=== PATIENT | female | born 1985 | race African-American/Black ===

== ENCOUNTER 2016-10-26 16:53 | Emergency (ER) | payer OTHER ==
[2016-10-26 17:00] VITALS: BP 110/71; PULSE 110; TEMP 98.6; BMI 31.3
--- NOTE | 2016-10-26 18:10 | PDOC ---
Attending Attestation - Resident Resident Name: Misty Orellana - ED Attending Attestation I have performed the following: I have examined & evaluated the patient, The case was reviewed & discussed with the resident, I agree w/resident's findings & plan, Exceptions are as noted - HPI HPI: 10/26/16 18:09 Asthma - Physicial Exam PE: 10/26/16 18:09 VSS NO RESPIRATORY DISTRESS - Medical Decision Making 10/26/16 18:[address] ORELLANA's ASSESSMENT AND PLAN
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
[2016-10-26 18:59] LABS: BASOPHIL 0.9 % (0-2.0); EOSINOPHIL 2.6 % (0-4.5); MCH 27.3 pg (25.7-33.7); MCHC 34.1 g/dl (32.0-36.0); MEAN CELL VOLUME 79.9 fl (80-96); MEAN PLT VOLUME 8.7 fl (7.5-11.1); NEUTROPHILS 57.3 % (42.8-82.8); PLATELET COUNT 441 K/MM3 (134-434); RDW 17.2 % (11.6-15.6); WHITE BLOOD COUNT 12.6 K/mm3 (4.0-10.0)
[2016-10-26 19:02] LABS: URINE APPEARANCE CLOUDY; URINE BILIRUBIN NEGATIVE (NEGATIVE); URINE BLOOD NEGATIVE (NEGATIVE); URINE COLOR DKYELLOW; URINE GLUCOSE (UA) NEGATIVE (NEGATIVE); URINE KETONE TRACE (NEGATIVE); URINE NITRITE NEGATIVE (NEGATIVE)
[2016-10-26 19:05] LABS: URINE LEUK ESTERASE 2+ (NEGATIVE); URINE PROTEIN 1+ (NEGATIVE)
[2016-10-26 19:08] LABS: URINE BACTERIA FEW /hpf (NONE SEEN); URINE HYALINE CAST 10 /lpf; URINE MUCUS MANY; URINE RBC 22 /hpf (0-3); URINE WBC 54 /hpf (3-5)
[2016-10-26] MEDS ORDERED: CEPHALEXIN MONOHYDRATE 500 MG CAPSULE (UD) PO ONE (20:06)
[2016-10-26] MEDS ORDERED: CEPHALEXIN MONOHYDRATE 250 MG CAPSULE (FP) ONE (20:09)
--- NOTE | 2016-10-26 20:11 | PDOC ---
*Physical Exam - Vital Signs Last Vital Signs Temp Pulse Resp BP Pulse Ox 98.6 F 110 H 18 110/71 98 10/26/16 16:58 10/26/16 16:58 10/26/16 16:58 10/26/16 16:58 10/26/16 16:58 - Physical Exam Comments: 10/26/16 20:08 GENERAL: Awake, alert, and fully oriented, in no acute distress HEAD: No signs of trauma, normocephalic, atraumatic EYES: PERRLA, EOMI, sclera anicteric, conjunctiva clear ENT: Auricles normal inspection, hearing grossly normal, oropharynx clear without exudates. Moist mucosa LUNGS: No distress, speaks full sentences, clear to auscultation bilaterally HEART: Regular rate and rhythm, normal S1 and S2, no murmurs, rubs or gallops, peripheral pulses normal and equal bilaterally. ABDOMEN: Suprapubic tenderness. No guarding, no rebound. No masses NEUROLOGICAL: Cranial nerves II through XII grossly intact. Normal speech, no focal sensorimotor deficits SKIN: Warm, Dry, normal turgor, no rashes or lesions noted. ED Treatment Course - LABORATORY CBC & Chemistry Diagram: 10/26/16 18:30 10/26/16 19:31 - ADDITIONAL ORDERS Additional order review: Laboratory Results 10/26/16 10/26/16 10/26/16 18:30 18:30 18:30 Sodium Cancelled Potassium Cancelled Chloride Cancelled Carbon Dioxide Cancelled Anion Gap Cancelled BUN Cancelled Creatinine Cancelled Creat Clearance w eGFR Cancelled Random Glucose Cancelled Calcium Cancelled Total Bilirubin Cancelled AST Cancelled ALT Cancelled Alkaline Phosphatase Cancelled Total Protein Cancelled Albumin Cancelled Serum , Qual Cancelled Urine Color Dkyellow Urine Appearance Cloudy Urine pH 5.0 Urine Protein 1+ H Urine Glucose (UA) Negative Urine Ketones Trace H Urine Blood Negative Urine Nitrite Negative Urine Bilirubin Negative Urine Urobilinogen 2.0 H Ur Leukocyte Esterase 2+ H Urine RBC 22 Urine WBC 54 Ur Epithelial Cells Moderate Urine Bacteria Few Hyaline Casts 10 Urine Mucus Many Urine HCG, Qual Negative 10/26/16 18:30 RBC 4.56 MCV 79.9 L MCHC 34.1 RDW 17.2 H MPV 8.7 D Neutrophils % 57.3 D Lymphocytes % 30.8 D Monocytes % 8.4 D Eosinophils % 2.6 D Basophils % 0.9 Medical Decision Making - Medical Decision Making 10/27/16 06:23 Patient is 31F with suprapubic abdominal pain. Vital signs stable and normal. UA shows UTI, no CVA tenderness, normal kidney function in labs. Given 3 days of keflex, first dose given here. Discharged to PCP followup. *DC/Admit/Observation/Transfer Diagnosis at time of Disposition: Urinary tract infection Qualifiers: Urinary tract infection type: acute cystitis - Discharge Dispostion Disposition: HOME Condition at time of disposition: Good Admit: No - Prescriptions Prescriptions: Docusate Sodium [Colace -] 100 mg PO DAILY #7 capsule Cephalexin [Keflex] 500 mg PO BID #5 capsule - Referrals Referrals: Denis Lucero MD [Staff Physician] - - Patient Instructions Printed Discharge Instructions: DI for Urinary Tract Infection (UTI) Additional Instructions: Please follow up with Dr Lucero at
[2016-10-26 20:39] LABS: ALBUMIN 3.6 g/dl (3.4-5.0); ALK PHOS 83 U/L (45-117); ANION GAP 8 (8-16); BILIRUBIN,TOTAL 0.3 mg/dL (0.2-1.0); CALCIUM 9.3 mg/dL (8.5-10.1); CO2 27 mmol/L (21-32); GLUCOSE,RANDOM 97 mg/dL (74-106); SGOT/AST 14 U/L (15-37); SGPT/ALT 18 U/L (12-78); TOT PROT 7.6 g/dl (6.4-8.2)
[2016-10-26] MEDS ORDERED: DOCUSATE SODIUM 100 MG CAPSULE (FP) PO ONE ×2 (20:56→21:01)
== END 2016-10-26 21:38 | disposition home or self-care (01) ==
LOC: JER 16:53 → JERFT 16:53 → JER 21:38
DX: N30.00 Acute cystitis without hematuria (principal); J45.909 Unspecified asthma, uncomplicated; Z86.69 Personal history of other diseases of the nervous system and sense organs; F17.210 Nicotine dependence, cigarettes, uncomplicated
CPT/HCPCS: 36415; 71010-TC; 80053; 81003; 81015; 84703; 85025; 99283-25

== ENCOUNTER 2017-01-29 04:43 | Emergency (ER) | payer OTHER ==
[2017-01-29 05:41] VITALS: TEMP 98.7; BMI 28.3
[2017-01-29] MEDS ORDERED: diazePAM 5 MG TABLET PO ONE (06:13)
[2017-01-29] MEDS ORDERED: KETOROLAC TROMETHAMINE 30 MG/1 ML VIAL IM ONE (06:13)
--- NOTE | 2017-01-29 06:28 | PDOC ---
History of Present Illness - General Chief Complaint: Pain, Acute Stated Complaint: BACK PAIN,NECK PAIN Time Seen by Provider: 01/29/17 05:36 History Source: Patient - History of Present Illness Initial Comments: 01/29/17 06:10 31 year old female c/o right buttocks pain radiating to right leg. denies numbness and tingling to the leg. patient also reports right pain to flank area worse with movement. denies past medical history. denies trauma or injury. denies urinary symptoms. Lower Ext. Injury Location - Specific Injury Location Hips: right hip: no evidence of injury, normal inspection, normal range of motion, non-tender, limited range of motion, swelling, soft tissue tenderness, deformity Extremity Pain Location - Extremity Pain Location Extremity Pain Locations: right: leg (buttocks--> right leg) Past History - Past Medical History Allergies/Adverse Reactions: Allergies Allergy/AdvReac Type Severity Reaction Status Date / Time No Known Allergies Allergy Verified 01/29/17 05:38 Home Medications: Ambulatory Orders Albuterol Sulfate Inhaler - [Ventolin HFA Inhaler -] 1 - 2 inh PO Q4H PRN Cyclobenzaprine HCl [Flexeril 10 mg] 5 mg PO BID PRN #12 tablet 01/29/17 Ibuprofen [Motrin -] 600 mg PO TID PRN #21 tablet 01/29/17 Asthma: Yes Seizures: Yes - Family Disease History Family Disease History: Heart Disease: Father, Other: Grandparents (seizures) - Immunization History Immunization Up to Date: Yes - Suicide/Smoking/Psychosocial Hx Smoking History: Never smoked Have you smoked in the past 12 months: No Number of Cigarettes Smoked Daily: 10 Information on smoking cessation initiated: No 'Breaking Loose' booklet given: 10/26/16 Hx Alcohol Use: No Drug/Substance Use Hx: No Substance Use Type: None Review of Systems - Review of Systems Able to Perform ROS?: Yes Is the patient limited Chinese proficient: No Constitutional: No: Symptoms Reported, See HPI, Chills, Diaphoresis, Fever, Loss of Appetite, Malaise, Night Sweats, Weakness, Weight Stable, Unintentional Wgt. Loss, Unexplained wgt Loss, Other : Yes: Flank Pain (right flank pain). No: Symptoms Reported, See HPI, Burning , Dysuria, Discharge, Frequency, Hematuria, Incontinence, Pain, Urgency, Testicular Mass, Testicular Swelling, Lesions, Testicular Pain, Other Musculoskeletal: Yes: Other (right buttocks radiating to right leg pain) *Physical Exam - Vital Signs Last Vital Signs Temp Pulse Resp BP Pulse Ox 98.7 F 121 H 14 115/92 100 01/29/17 05:39 01/29/17 05:39 01/29/17 05:39 01/29/17 05:39 01/29/17 05:39 - Physical Exam General Appearance: Yes: Appropriately Dressed Respiratory/Chest: positive: Lungs Clear, Normal Breath Sounds Gastrointestinal/Abdominal: positive: Normal Bowel Sounds, Soft. negative: Tender Musculoskeletal: positive: Normal Inspection, Muscle Spasm (right posterior flank area). negative: CVA Tenderness, CVA Tenderness (R), CVA Tenderness (L), Decreased Range of Motion, Vertebral Tenderness, Other Extremity: positive: Normal Inspection, Normal Range of Motion Integumentary: positive: Normal Color, Dry, Warm Progress Note - Progress Note Progress Note: A: sciatica P: UA UCG toradol + valium Medical Decision Making - Medical Decision Making 01/29/17 07:11 patient signed out Raina GARCIA. *DC/Admit/Observation/Transfer Diagnosis at time of Disposition: Right sided sciatica - Discharge Dispostion Disposition: HOME Condition at time of disposition: Improved - Prescriptions Prescriptions: Cyclobenzaprine HCl [Flexeril 10 mg] 5 mg PO BID PRN #12 tablet PRN Reason: Back Pain Ibuprofen [Motrin -] 600 mg PO TID PRN #21 tablet PRN Reason: Pain - Referrals Referrals: Shahzad Goldsmith MD [Staff Physician] - Brodie Mallory [Primary Care Provider] - - Patient Instructions Printed Discharge Instructions: DI for Back Pain With Sciatica Additional Instructions: Please take medication as prescribed. Please follow-up with referred orthopedist. Please read over instructions and closed in regards to sciatica with recommendations - Post Discharge Activity
[2017-01-29 07:15] LABS: URINE APPEARANCE CLOUDY; URINE BILIRUBIN NEGATIVE (NEGATIVE); URINE BLOOD 2+ (NEGATIVE); URINE COLOR YELLOW; URINE GLUCOSE (UA) NEGATIVE (NEGATIVE); URINE KETONE NEGATIVE (NEGATIVE); URINE NITRITE NEGATIVE (NEGATIVE); URINE PROTEIN NEGATIVE (NEGATIVE); URINE UROBILINOGEN NEGATIVE mg/dL (0.2-1.0)
[2017-01-29] MEDS ORDERED: KETOROLAC TROMETHAMINE 30 MG/1 ML VIAL ONE (07:17)
[2017-01-29] MEDS ORDERED: diazePAM 5 MG TABLET ONE (07:17)
--- NOTE | 2017-01-29 07:28 | PDOC ---
*Physical Exam - Vital Signs Last Vital Signs Temp Pulse Resp BP Pulse Ox 98.7 F 121 H 14 115/92 100 01/29/17 05:39 01/29/17 05:39 01/29/17 05:39 01/29/17 05:39 01/29/17 05:39 ED Treatment Course - ADDITIONAL ORDERS Additional order review: Laboratory Results 01/29/17 06:14 Urine HCG, Qual Negative - Medications Given in the ED: ED Medications Discontinued Medications Generic Name Dose Route Start Last Admin Trade Name Kalpana PRN Reason Stop Dose Admin Diazepam 5 mg 01/29/17 06:13 01/29/17 07:20 Valium - PO 01/29/17 06:14 5 mg ONCE ONE Administration Ketorolac Tromethamine 30 mg 01/29/17 06:13 01/29/17 07:27 Toradol Injection - IM 01/29/17 06:14 30 mg ONCE ONE Administration Medical Decision Making - Medical Decision Making 01/29/17 07:28 Patient received in sign out from RADHA Montilla. Patient awaiting Toradol and Valium secondary to right sciatica pain. Patient also had urinalysis sent which is pending. Laboratory Tests 01/29/17 06:14 Urine HCG, Qual Negative 01/29/17 08:22 Patient states feeling much better after receiving the medication. Patient's urine showed white cells concerning for infection. Patient states did have a UTI a few months ago and did not complete her antibiotics as recommended. Urine culture was collected and sent. Patient will be discharged home with Motrin and Flexeril. patient also given referral to orthopedist. *DC/Admit/Observation/Transfer Diagnosis at time of Disposition: Right sided sciatica - Discharge Dispostion Disposition: HOME Condition at time of disposition: Improved - Referrals Referrals: Brodie Mallory [Primary Care Provider] - Shahzad Goldsmith MD [Staff Physician] - - Patient Instructions Printed Discharge Instructions: DI for Back Pain With Sciatica Additional Instructions: Please take medication as prescribed. Please follow-up with referred orthopedist. Please read over instructions and closed in regards to sciatica with recommendations - Post Discharge Activity
[2017-01-29 07:31] VITALS: BP 110/71; PULSE 110
[2017-01-29 08:01] LABS: URINE LEUK ESTERASE 1+ (NEGATIVE)
[2017-01-29 08:03] LABS: URINE MUCUS FEW; URINE RBC 4 /hpf (0-3); URINE WBC 6 /hpf (3-5)
[2017-01-29 11:05] LABS: URINE LEUK ESTERASE NEGATIVE (NEGATIVE)
== END 2017-01-29 08:44 | disposition home or self-care (01) ==
LOC: JER 04:43
DX: M54.31 Sciatica, right side (principal); J45.909 Unspecified asthma, uncomplicated
CPT/HCPCS: 81003; 81015; 84703; 87086; 99284-25

== ENCOUNTER 2017-02-22 23:51 | Emergency (ER) | payer OTHER ==
--- NOTE | 2017-02-23 01:49 | PDOC ---
History of Present Illness - General Stated Complaint: PAIN Time Seen by Provider: 02/23/17 01:06 History Source: Patient Exam Limitations: No Limitations - History of Present Illness Initial Comments: 02/23/17 01:46 31-year-old female with a history of asthma and seizures who is right hand dominant presents to the emergency department complaining of point tenderness to the left anterior shoulder 2 days after heavy lifting. Patient denies any headache, dizziness, neck/back pain/stiffness, chest pain, shortness of breath, extremity numbness or tingling sensation. Pain is exacerbated on touch and movements and alleviated at rest. Patient denies any other injuries or complaints. Timing/Duration: other (x2d) Past History - Past Medical History Allergies/Adverse Reactions: Allergies Allergy/AdvReac Type Severity Reaction Status Date / Time No Known Allergies Allergy Verified 02/23/17 01:40 Home Medications: Ambulatory Orders Albuterol Sulfate Inhaler - [Ventolin HFA Inhaler -] 1 - 2 inh PO Q4H PRN Cyclobenzaprine HCl [Flexeril 10 mg] 5 mg PO BID PRN #12 tablet 01/29/17 Ibuprofen [Motrin -] 600 mg PO TID PRN #21 tablet 01/29/17 Asthma: Yes COPD: No Seizures: Yes - Family Disease History Family Disease History: Heart Disease: Father, Other: Grandparents (seizures) - Immunization History Immunization Up to Date: Yes - Suicide/Smoking/Psychosocial Hx Smoking History: Never smoked Have you smoked in the past 12 months: No Number of Cigarettes Smoked Daily: 10 Information on smoking cessation initiated: No 'Breaking Loose' booklet given: 10/26/16 Hx Alcohol Use: No Drug/Substance Use Hx: No Substance Use Type: None Review of Systems - Review of Systems Able to Perform ROS?: Yes Comments:: 02/23/17 01:47 CONSTITUTIONAL: Absent: fever, chills, diaphoresis, generalized weakness, malaise, loss of appetite CARDIOVASCULAR: Absent: chest pain, loss of consciousness, palpitations, irregular heart rate, peripheral edema RESPIRATORY: Absent: cough, shortness of breath, dyspnea with exertion, orthopnea, wheezing, stridor, hemoptysis GASTROINTESTINAL: Absent: abdominal pain, abdominal distension, nausea, vomiting, diarrhea, constipation, melena, hematochezia GENITOURINARY: Absent: dysuria, frequency, urgency, hesitancy, hematuria, flank pain, genital pain MUSCULOSKELETAL: +Left ant shoulder pain Absent: myalgia, arthralgia, joint swelling SKIN: Absent: rash, itching, pallor Is the patient limited Kinyarwanda proficient: No *Physical Exam - Vital Signs Last Vital Signs Temp Pulse Resp BP Pulse Ox 98.7 F 108 H 19 117/63 100 02/23/17 01:31 02/23/17 01:31 02/23/17 01:31 02/23/17 01:31 02/23/17 01:31 - Physical Exam Comments: 02/23/17 01:47 GENERAL: Well developed, well nourished. Awake and alert. No acute distress. HEENT: Normocephalic, atraumatic. PERRLA, EOMI. No conjunctival pallor. Sclera are non- icteric. Moist mucous membranes. Oropharynx is clear. NECK: Supple. Full ROM. No JVD. Carotid pulses 2+ and symmetric, without bruits. No thyromegaly. No lymphadenopathy. CARDIOVASCULAR: Regular rate and rhythm. No murmurs, rubs, or gallops. Distal pulses are 2+ and symmetric. PULMONARY: No evidence of respiratory distress. Lungs clear to auscultation bilaterally. No wheezing, rales or rhonchi. ABDOMINAL: Soft. Non-tender. Non-distended. No rebound or guarding. No organomegaly. Normoactive bowel sounds. MUSCULOSKELETAL Normal range of motion at all joints. No bony deformities or tenderness. No CVA tenderness. EXTREMITIES: No cyanosis. No clubbing. No edema. No calf tenderness. SKIN: Warm and dry. Normal capillary refill. No rashes. No jaundice. Left ant shoulder +pain to ant acromium decreased R.O.M./pain +drop arm/pain to ant shoulder neg obv deformities Left elbow F.R.O.M. neg pain on palp neg obv deformities ED Treatment Course - RADIOLOGY Radiology Studies Ordered: Category Date Time Status SHOULDER-LEFT [RAD] Stat Radiology 02/23/17 01:26 Ordered Radiograph Interpretation: 02/23/17 01:49 Xray left shoulder: neg obv fx/deformities Medical Decision Making - Medical Decision Making 02/23/17 02:39 31-year-old female presents complaining of left shoulder pain 3 days. There is point tenderness to the anterior left shoulder. X-ray shows negative fracture/ dislocation. Patient will be discharged to follow with Ortho. *DC/Admit/Observation/Transfer Diagnosis at time of Disposition: Left shoulder pain Qualifiers: Chronicity: acute Qualified Code(s): M25.512 - Pain in left shoulder - Discharge Dispostion Disposition: HOME Condition at time of disposition: Fair Admit: No - Referrals Referrals: Shahzad Goldsmith MD [Staff Physician] - - Patient Instructions Printed Discharge Instructions: DI for Shoulder Pain Additional Instructions: Ice; 20 mins on alternating with 20 mins off for 48 hours while awake. Rest Elevate Follow up with your orthopedic surgeon or the one listed on the discharge form. Return to the ER for severe/persistent/worsening symptoms, extremity numbness/ tingling sensation. - Post Discharge Activity
[2017-02-23 02:09] VITALS: BP 117/63; PULSE 108; TEMP 98.7; BMI 22.2
[2017-02-23] MEDS ORDERED: KETOROLAC TROMETHAMINE 60 MG/2 ML VIAL IM ONE (02:41)
[2017-02-23] MEDS ORDERED: KETOROLAC TROMETHAMINE 60 MG/2 ML VIAL ONE (03:19)
== END 2017-02-23 03:34 | disposition home or self-care (01) ==
LOC: JER 23:51
PROC: 3E0233Z Introduction of Anti-inflammatory into Muscle, Percutaneous Approach (ICD-10-PCS; principal; 2017-02-22)
DX: M25.512 Pain in left shoulder (principal); J45.909 Unspecified asthma, uncomplicated; Z86.69 Personal history of other diseases of the nervous system and sense organs; X50.0XXA Overexertion from strenuous movement or load, initial encounter; Y93.89 Activity, other specified; Y92.89 Other specified places as the place of occurrence of the external cause; Y99.8 Other external cause status
CPT/HCPCS: 73030-TC-LT; 96372; 99281-25

== ENCOUNTER 2017-03-26 22:12 | Emergency (ER) | payer OTHER ==
[2017-03-26 22:48] VITALS: BP 110/65; PULSE 108; TEMP 97.9; BMI 25.4
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
[2017-03-27] MEDS ORDERED: IBUPROFEN 600 MG TABLET (FP) PO STA (03:48)
[2017-03-27] MEDS ORDERED: AMOX TR/POT CLAV 500MG/125MG TABLETS (FP) PO ONE (03:49)
[2017-03-27] MEDS ORDERED: AMOX TR/POT CLAV 500MG/125MG TABLETS (FP) ONE (04:19)
[2017-03-27] MEDS ORDERED: IBUPROFEN 600 MG TABLET (FP) PO ONE (04:19)
--- NOTE | 2017-03-27 15:47 | EKG ---
Test Reason : Blood Pressure : / mmHG Vent. Rate : 112 BPM Atrial Rate : 112 BPM P-R Int : 128 ms QRS Dur : 084 ms QT Int : 348 ms P-R-T Axes : 041 033 043 degrees QTc Int : 475 ms SINUS TACHYCARDIA OTHERWISE NORMAL ECG WHEN COMPARED WITH ECG OF 06-OCT-2014 09:45, NONSPECIFIC T WAVE ABNORMALITY NOW EVIDENT IN ANTERIOR LEADS Confirmed by ELVIN FOFANA MD ([id number]) on 03/27/2017 3:46:43 PM Referred By: Confirmed By:ELVIN FOFANA MD
== END 2017-03-27 05:56 | disposition home or self-care (01) ==
LOC: JER 22:12
DX: S00.83XA Contusion of other part of head, initial encounter (principal); S20.211A Contusion of right front wall of thorax, initial encounter; Y04.2XXA Assault by strike against or bumped into by another person, initial encounter; Y93.89 Activity, other specified; Y92.89 Other specified places as the place of occurrence of the external cause; Y99.8 Other external cause status; Y07.9 Unspecified perpetrator of maltreatment and neglect
CPT/HCPCS: 70450-TC; 70486-TC; 71250-TC; 72125-TC; 84703; 93005; 93010; 99281-25